=== PATIENT | male | born 1940 | race Two or more races ===

== ENCOUNTER → 2018-04-10 | Outpatient (CLI) | payer OTHER ==
[~2018-04-10] MED LIST: ACET-814 PO; CETI10TA79 PO; CHOL2000 PO; CYAN10005 PO; IBUP-1623 PO; LACT1CAP37 PO; LISI-170 PO; PRAV20TA2 PO; RANI150T23 PO; SENN-123 PO; VIT1TABL32 PO
[2018-04-10 10:45] LABS: BASOPHILS # (AUTO) 0.03 x10^3/uL (0-0.1); BASOPHILS % (AUTO) 1 % (0-1); EOSINOPHILS # (AUTO) 0.14 x10^3/uL (0-0.4); EOSINOPHILS % (AUTO) 3 % (1-7); LYMPHOCYTES # (AUTO) 1.62 x10^3/uL (1-3.4); LYMPHOCYTES % (AUTO) 35 % (22-44); MD NO; MEAN CORPUSCULAR HEMOGLOBIN 32.9 pg (27.5-34.5); MEAN CORPUSCULAR HGB CONC 34.6 g/dL (33.2-36.2); MEAN CORPUSCULAR VOLUME 95.1 fL (81-97); MEAN PLATELET VOLUME 7.7 fL (7.4-10.4); MONOCYTES # (AUTO) 0.38 x10^3/uL (0.2-0.8); MONOCYTES % (AUTO) 8 % (2-9); NEUTROPHILS # (AUTO) 2.48 x10^3/uL (1.8-6.8); NEUTROPHILS % (AUTO) 54 % (42-75); PLATELET COUNT 212 x10^3/uL (130-400); RED BLOOD COUNT 4.43 x10^6/uL (4.38-5.82)
[2018-04-10 10:48] LABS: CULTURE INDICATED? NO; MICROSCOPIC NOT IND
[2018-04-10 10:55] LABS: INTERNATIONAL NORMALIZED RATIO 1.03 (0.93-1.1); PROTHROMBIN TIME 10.7 Seconds (9.6-11.5)
[2018-04-10 10:57] LABS: ALBUMIN 3.8 g/dL (3.4-5.0); ANION GAP 8 mmol/L (5-15); CALCIUM 8.6 mg/dL (8.5-10.1); CHLORIDE 110 mmol/L (98-107)
[2018-04-10 10:59] LABS: ALANINE AMINOTRANSFERASE 41 U/L (12-78); ALKALINE PHOSPHATASE 62 U/L (45-117); BILIRUBIN,TOTAL 0.4 mg/dL (0.2-1.0); CREATININE 0.93 mg/dL (0.7-1.3); TOTAL PROTEIN 6.9 g/dL (6.4-8.2)
== END | disposition home or self-care (01) ==
LOC: STAR 09:15
PROVIDERS: ATTEND Neurological Surgery
DX: Z01.818 Encounter for other preprocedural examination (principal); M48.062 Spinal stenosis, lumbar region with neurogenic claudication; M51.36 Other intervertebral disc degeneration, lumbar region; Z87.891 Personal history of nicotine dependence
CPT/HCPCS: 36415; 71046; 80053; 81003; 85025; 85610; 85730; 93005

== ENCOUNTER 2018-04-19 09:20 | Inpatient (IN) | payer OTHER ==
[2018-04-10 11:59] VITALS: BP 132/82
[~2018-04-19] VITALS: Ht 182.9 cm; Wt 118.2 kg
[~2018-04-19 09:20] MED LIST changes: +BACITRACIN 50,000 UNIT ONE; +BUPIVACAINE/PF 0.5% ONE; +BUPIVACAINE/PF-EPI 0.5% 1:200K ONE; +THROMBIN 5,000 UNIT VIAL TP ONE; +VANCOMYCIN 1,000 MG ONE
[2018-04-19] MEDS ORDERED: LACTATED RINGERS 1,000 ML IV SCH (10:48)
[2018-04-19] MEDS ORDERED: GABAPENTIN 300 MG CAPSULE PO ONE (11:00)
[2018-04-19] MEDS ORDERED: LIDOCAINE-MPF 1%, 2ML INFIL ONE (11:00)
[2018-04-19] MEDS ORDERED: ACETAMINOPHEN 500 MG TABLET PO ONE (11:00)
[2018-04-19] MEDS ORDERED: SCOPOLAMINE PATCH, 1.5MG PATCH.TD72 TD ONE (11:00)
[2018-04-19] MEDS ORDERED: MIDAZOLAM 1 MG/ML, 2ML ONE (12:29)
[2018-04-19] MEDS ORDERED: FENTANYL PF 250 MCG/5ML ONE (12:29)
[2018-04-19] MEDS ORDERED: PROPOFOL 10 MG/ML, 20ML ONE (13:22)
[2018-04-19] MEDS ORDERED: ONDANSETRON 2MG/ML, 2ML ONE (13:22)
[2018-04-19] MEDS ORDERED: SUCCINYLCHOLINE 20 MG/ML, 10ML ONE (13:22)
[2018-04-19] MEDS ORDERED: ROCURONIUM 10 MG/ML,10ML ONE (13:22)
[2018-04-19] MEDS ORDERED: DEXAMETHASONE 4 MG/ML, 1ML ONE (13:22)
[2018-04-19] MEDS ORDERED: CEFAZOLIN 1,000 MG ONE (13:22)
[2018-04-19] MEDS ORDERED: PHARMACY MAY ADJ FOR RENAL FX MC PRN (15:30)
[2018-04-19] MEDS ORDERED: LABETALOL 5MG/ML, 20ML IV PRN (15:30)
[2018-04-19] MEDS ORDERED: OXYcodone 5 MG/5 ML ORAL.SOL UDC PO PRN (15:30)
[2018-04-19] MEDS ORDERED: ONDANSETRON 2MG/ML, 2ML IVPush PRN ×2 (15:30)
[2018-04-19] MEDS ORDERED: MORPHINE SULFATE 4 MG/ML, 1ML IVPush PRN (15:30)
[2018-04-19] MEDS ORDERED: ALBUTEROL SULFATE 2.5 MG/3 ML NPPB PRN (15:30)
[2018-04-19] MEDS ORDERED: METOCLOPRAMIDE 5 MG/ML, 2ML IV PRN (15:30)
[2018-04-19] MEDS ORDERED: BISACODYL 10 MG SUPP PR PRN (15:30)
[2018-04-19] MEDS ORDERED: MEPERIDINE/PF 25MG/0.5ML IVPush PRN (15:30)
[2018-04-19] MEDS ORDERED: DIPHENHYDRAMINE 50 MG/ML, 1ML IVPush PRN (15:30)
[2018-04-19] MEDS ORDERED: HYDROcodone/APAP 5/325 TABLET PO PRN (15:30)
[2018-04-19] MEDS ORDERED: PROMETHAZINE 25 MG/ML, 1ML IV PRN (15:30)
[2018-04-19] MEDS ORDERED: hydrALAzine 20 MG/ML, 1ML IV PRN (15:30)
[2018-04-19] MEDS ORDERED: METHOCARBAMOL 1,000 MG in DEXTROSE 5% 100 ML IV ONE (15:30)
[2018-04-19] MEDS: FENTANYL PF 100 MCG/2ML IV PRN ×2 (15:39→15:45)
[2018-04-19] MEDS ORDERED: FENTANYL PF 100 MCG/2ML ONE (15:39)
[2018-04-19] MEDS ORDERED: OXYcodone 5 MG/5 ML ORAL.SOL UDC ONE (15:40)
[2018-04-19] MEDS ORDERED: HYDROmorphone 2 MG/ML, 1ML ONE (15:51)
[2018-04-19] MEDS: HYDROmorphone 2 MG/ML, 1ML IV PRN ×4 (15:55→16:29)
[2018-04-19] MEDS ORDERED: LABETALOL 5MG/ML, 20ML ONE (16:13)
[2018-04-19] MEDS ORDERED: KETOROLAC 30 MG/1 ML IV PRN (17:00)
[2018-04-19 17:15] VITALS: BP 140/74
[2018-04-19] MEDS: D5%-0.9% NACL+KCL 20MEQ 1,000 ML IV SCH (18:01)
[2018-04-19] MEDS ORDERED: TEMPLATE NON-FORMULARY MED. (Ranitidine Hcl** (Zantac**) 150 MG) PO SCH (21:00)
[2018-04-19] MEDS: FAMOTIDINE 20 MG TABLET PO SCH (21:28)
[2018-04-19] MEDS: PRAVASTATIN 20 MG TABLET PO SCH (21:28)
[2018-04-19] MEDS: PROMETHAZINE 25 MG/ML, 1ML IM PRN (21:28)
[2018-04-19] MEDS: CEFAZOLIN PMX 1GM/50ML 50 ML IVPB SCH (21:29)
[2018-04-19] MEDS: SODIUM CHLORIDE FLUSH 10ML SYR IVF SCH (21:29)
[2018-04-19 23:55] VITALS: BP 105/61
[2018-04-20] MEDS: PROMETHAZINE 25 MG/ML, 1ML IM PRN (01:53)
[2018-04-20] MEDS: CYCLOBENZAPRINE 10 MG TABLET PO PRN ×2 (01:53→20:58)
[2018-04-20] MEDS: OXYcodone/APAP 5/325MG TABLET PO PRN ×5 (01:53→18:07)
[2018-04-20 03:59] VITALS: BP 101/58
[2018-04-20] MEDS: CEFAZOLIN PMX 1GM/50ML 50 ML IVPB SCH (05:44)
[2018-04-20 07:32] VITALS: BP 120/71
[2018-04-20] MEDS: FAMOTIDINE 20 MG TABLET PO SCH ×2 (07:55→20:58)
[2018-04-20] MEDS: SODIUM CHLORIDE FLUSH 10ML SYR IVF SCH ×2 (07:55→20:58)
[2018-04-20] MEDS: LISINOPRIL 20 MG TABLET PO SCH (07:55)
[2018-04-20] MEDS: SENNA/DOCUSATE TABLET PO SCH (07:55)
[2018-04-20] MEDS: LACTOBACILLUS CHEW TABLET PO SCH (07:55)
[2018-04-20] MEDS: CETIRIZINE 10 MG TABLET PO SCH (08:01)
[2018-04-20] MEDS ORDERED: TAMSULOSIN 0.4 MG CAP.ER.24H PO ONE (08:30)
[2018-04-20] MEDS: D5%-0.9% NACL+KCL 20MEQ 1,000 ML IV SCH (09:20)
[2018-04-20] MEDS: BETHANECHOL 25 MG TABLET PO SCH ×3 (09:20→20:58)
[2018-04-20 13:20] VITALS: BP 112/67
[2018-04-20 20:27] VITALS: BP 119/60
[2018-04-20] MEDS: PRAVASTATIN 20 MG TABLET PO SCH (20:58)
[2018-04-20] MEDS: MAGNESIUM HYDROXIDE 8%, 30ML UDC PO PRN (21:05)
[2018-04-21] MEDS: D5%-0.9% NACL+KCL 20MEQ 1,000 ML IV SCH ×2 (00:17→12:28)
[2018-04-21] MEDS: HYDROcodone/APAP 10/325 MG TABLET PO PRN ×3 (00:21→12:28)
[2018-04-21 02:19] VITALS: BP 115/57
[2018-04-21 04:43] LABS: BASOPHILS # (AUTO) 0.01 x10^3/uL (0-0.1); BASOPHILS % (AUTO) 0 % (0-1); EOSINOPHILS # (AUTO) 0.05 x10^3/uL (0-0.4); EOSINOPHILS % (AUTO) 1 % (1-7); LYMPHOCYTES # (AUTO) 1.24 x10^3/uL (1-3.4); LYMPHOCYTES % (AUTO) 17 % (22-44); MD NO; MEAN CORPUSCULAR HEMOGLOBIN 32.8 pg (27.5-34.5); MEAN CORPUSCULAR HGB CONC 34.2 g/dL (33.2-36.2); MEAN CORPUSCULAR VOLUME 95.8 fL (81-97); MEAN PLATELET VOLUME 7.5 fL (7.4-10.4); MONOCYTES # (AUTO) 0.61 x10^3/uL (0.2-0.8); MONOCYTES % (AUTO) 8 % (2-9); NEUTROPHILS # (AUTO) 5.48 x10^3/uL (1.8-6.8); NEUTROPHILS % (AUTO) 74 % (42-75); PLATELET COUNT 191 x10^3/uL (130-400); RED BLOOD COUNT 3.78 x10^6/uL (4.38-5.82)
[2018-04-21 04:51] LABS: ANION GAP 8 mmol/L (5-15); CALCIUM 7.9 mg/dL (8.5-10.1); CHLORIDE 107 mmol/L (98-107)
[2018-04-21 04:54] LABS: CREATININE 0.93 mg/dL (0.7-1.3)
[2018-04-21] MEDS: CYCLOBENZAPRINE 10 MG TABLET PO PRN ×2 (06:41→16:56)
[2018-04-21 07:40] VITALS: BP 115/72
[2018-04-21] MEDS: SODIUM CHLORIDE FLUSH 10ML SYR IVF SCH ×2 (09:00→21:00)
[2018-04-21 09:13] VITALS: BP 104/52
[2018-04-21] MEDS: TAMSULOSIN 0.4 MG CAP.ER.24H PO SCH (09:25)
[2018-04-21] MEDS: SENNA/DOCUSATE TABLET PO SCH (09:25)
[2018-04-21] MEDS: LISINOPRIL 20 MG TABLET PO SCH (09:25)
[2018-04-21] MEDS: LACTOBACILLUS CHEW TABLET PO SCH (09:25)
[2018-04-21] MEDS: CETIRIZINE 10 MG TABLET PO SCH (09:26)
[2018-04-21] MEDS: FAMOTIDINE 20 MG TABLET PO SCH ×2 (09:26→21:47)
[2018-04-21] MEDS: BETHANECHOL 25 MG TABLET PO SCH ×3 (09:26→21:48)
[2018-04-21] MEDS: MAGNESIUM HYDROXIDE 8%, 30ML UDC PO PRN (14:44)
[2018-04-21] MEDS: DIPHENHYDRAMINE 25 MG CAPSULE PO PRN ×2 (15:09→21:49)
[2018-04-21 15:23] VITALS: BP 130/73
[2018-04-21] MEDS ORDERED: MAGNESIUM CITRATE 300ML ORAL SOL PO PRN (18:00)
[2018-04-21] MEDS: PRAVASTATIN 20 MG TABLET PO SCH (21:47)
[2018-04-21 21:59] VITALS: BP 130/72
[2018-04-22 03:55] VITALS: BP 133/73
[2018-04-22] MEDS: D5%-0.9% NACL+KCL 20MEQ 1,000 ML IV SCH ×2 (06:15→17:20)
[2018-04-22 07:52] VITALS: BP 123/74
[2018-04-22] MEDS: SODIUM CHLORIDE FLUSH 10ML SYR IVF SCH ×2 (08:11→20:46)
[2018-04-22] MEDS: LACTOBACILLUS CHEW TABLET PO SCH (08:12)
[2018-04-22] MEDS: SENNA/DOCUSATE TABLET PO SCH (08:12)
[2018-04-22] MEDS: LISINOPRIL 20 MG TABLET PO SCH (08:12)
[2018-04-22] MEDS: TAMSULOSIN 0.4 MG CAP.ER.24H PO SCH (08:12)
[2018-04-22] MEDS: FAMOTIDINE 20 MG TABLET PO SCH ×2 (08:12→20:46)
[2018-04-22] MEDS: BETHANECHOL 25 MG TABLET PO SCH ×3 (08:13→20:46)
[2018-04-22] MEDS: CETIRIZINE 10 MG TABLET PO SCH (08:13)
[2018-04-22] MEDS: CYCLOBENZAPRINE 10 MG TABLET PO PRN (09:46)
[2018-04-22 12:15] VITALS: BP_SYST 131; BP_SYST 99; BP_DIAS 37; BP_DIAS 61; BP_DIAS 71
[2018-04-22 15:16] VITALS: BP 108/69
[2018-04-22 20:46] VITALS: BP 121/73
[2018-04-22] MEDS: PRAVASTATIN 20 MG TABLET PO SCH (20:46)
[2018-04-23 03:50] VITALS: BP 128/79
[2018-04-23] MEDS: D5%-0.9% NACL+KCL 20MEQ 1,000 ML IV SCH ×2 (06:40→20:00)
[2018-04-23 07:55] VITALS: BP 115/65
[2018-04-23] MEDS: CYCLOBENZAPRINE 10 MG TABLET PO PRN ×2 (08:06→16:05)
[2018-04-23] MEDS: LACTOBACILLUS CHEW TABLET PO SCH (08:06)
[2018-04-23] MEDS: SENNA/DOCUSATE TABLET PO SCH (08:06)
[2018-04-23] MEDS: FAMOTIDINE 20 MG TABLET PO SCH ×2 (08:07→20:50)
[2018-04-23] MEDS: SODIUM CHLORIDE FLUSH 10ML SYR IVF SCH ×2 (08:07→20:51)
[2018-04-23] MEDS: LISINOPRIL 20 MG TABLET PO SCH (08:07)
[2018-04-23] MEDS: TAMSULOSIN 0.4 MG CAP.ER.24H PO SCH (08:07)
[2018-04-23] MEDS: CETIRIZINE 10 MG TABLET PO SCH (08:08)
[2018-04-23] MEDS: BETHANECHOL 25 MG TABLET PO SCH ×3 (08:16→20:51)
[2018-04-23 12:14] VITALS: BP 114/63
[2018-04-23] MEDS: DIPHENHYDRAMINE 25 MG CAPSULE PO PRN (13:27)
[2018-04-23 19:27] VITALS: BP 112/69
[2018-04-23] MEDS: PRAVASTATIN 20 MG TABLET PO SCH (20:51)
[2018-04-24 01:35] VITALS: BP 114/67
[2018-04-24] MEDS: CYCLOBENZAPRINE 10 MG TABLET PO PRN ×2 (03:16→18:21)
[2018-04-24] MEDS: OXYcodone/APAP 5/325MG TABLET PO PRN ×3 (03:18→18:21)
[2018-04-24 07:50] VITALS: BP 112/71
[2018-04-24] MEDS: FAMOTIDINE 20 MG TABLET PO SCH ×2 (08:42→20:03)
[2018-04-24] MEDS: TAMSULOSIN 0.4 MG CAP.ER.24H PO SCH (08:42)
[2018-04-24] MEDS: CETIRIZINE 10 MG TABLET PO SCH (08:43)
[2018-04-24] MEDS: SENNA/DOCUSATE TABLET PO SCH (08:43)
[2018-04-24] MEDS: LISINOPRIL 20 MG TABLET PO SCH (08:43)
[2018-04-24] MEDS: LACTOBACILLUS CHEW TABLET PO SCH (08:43)
[2018-04-24] MEDS: BETHANECHOL 25 MG TABLET PO SCH (08:43)
[2018-04-24] MEDS: SODIUM CHLORIDE FLUSH 10ML SYR IVF SCH ×2 (08:44→21:00)
[2018-04-24] MEDS: D5%-0.9% NACL+KCL 20MEQ 1,000 ML IV SCH ×2 (08:45→22:40)
[2018-04-24] MEDS: MAGNESIUM HYDROXIDE 8%, 30ML UDC PO PRN (12:23)
[2018-04-24 13:14] VITALS: BP 116/65
[2018-04-24 19:52] VITALS: BP 113/73
[2018-04-24] MEDS: PRAVASTATIN 20 MG TABLET PO SCH (20:03)
[2018-04-25 02:07] VITALS: BP 137/75
[2018-04-25] MEDS: OXYcodone/APAP 5/325MG TABLET PO PRN ×2 (03:00→08:54)
[2018-04-25 07:07] VITALS: BP 115/73
[2018-04-25] MEDS: SENNA/DOCUSATE TABLET PO SCH (08:52)
[2018-04-25] MEDS: TAMSULOSIN 0.4 MG CAP.ER.24H PO SCH (08:52)
[2018-04-25] MEDS: SODIUM CHLORIDE FLUSH 10ML SYR IVF SCH (08:52)
[2018-04-25] MEDS: FAMOTIDINE 20 MG TABLET PO SCH (08:52)
[2018-04-25] MEDS: CETIRIZINE 10 MG TABLET PO SCH (08:53)
[2018-04-25] MEDS: LISINOPRIL 20 MG TABLET PO SCH (08:53)
[2018-04-25] MEDS: MAGNESIUM HYDROXIDE 8%, 30ML UDC PO PRN (08:53)
[2018-04-25] MEDS: LACTOBACILLUS CHEW TABLET PO SCH (08:53)
[2018-04-25] MEDS: D5%-0.9% NACL+KCL 20MEQ 1,000 ML IV SCH (08:54)
[2018-04-25 12:28] VITALS: BP 120/78
== END 2018-04-25 18:00 | DRG 516 ==
LOC: OBSVTOIN 10:27 → INTOOBSV 10:27 → ORIP 10:27 → 4NOR 17:05
PROVIDERS: ADMIT Neurological Surgery; ATTEND Neurological Surgery
PROC: 01NR0ZZ Release Sacral Nerve, Open Approach (ICD-10-PCS; 2018-04-19)
PROC: 01NB0ZZ Release Lumbar Nerve, Open Approach (ICD-10-PCS; principal; 2018-04-19 15:00)
DX: M48.062 Spinal stenosis, lumbar region with neurogenic claudication (principal); G95.29 Other cord compression; M51.16 Intervertebral disc disorders with radiculopathy, lumbar region; M51.17 Intervertebral disc disorders with radiculopathy, lumbosacral region; N40.1 Benign prostatic hyperplasia with lower urinary tract symptoms; R33.8 Other retention of urine; E78.5 Hyperlipidemia, unspecified; K21.9 Gastro-esophageal reflux disease without esophagitis; G47.33 Obstructive sleep apnea (adult) (pediatric); I49.5 Sick sinus syndrome; Z87.891 Personal history of nicotine dependence; Z88.4 Allergy status to anesthetic agent; Z79.899 Other long term (current) drug therapy; Z85.46 Personal history of malignant neoplasm of prostate
CPT/HCPCS: 36415; 72100; 80048; 85025; C1729; G0378; J0690; J1100; J1170; J2250; J2405; J2550; J2704; J3010; J3370; J3490; J0330; J2800; J3480; J7120; Q0163

== ENCOUNTER 2020-02-02 20:10 | Emergency (ER) | payer MEDICARE, OTHER ==
[~2020-02-02] VITALS: Ht 182.9 cm; Wt 113.0 kg
[~2020-02-02 20:10] MED LIST changes: -BACITRACIN 50,000 UNIT ONE; -BUPIVACAINE/PF 0.5% ONE; -BUPIVACAINE/PF-EPI 0.5% 1:200K ONE; +CYAN-27 PO; -CYAN10005 PO; +RANI-467 PO; -RANI150T23 PO; -THROMBIN 5,000 UNIT VIAL TP ONE; -VANCOMYCIN 1,000 MG ONE
[2020-02-02] MEDS ORDERED: METHYLNALTREXONE 12 MG/0.6 ML SYR SQ ONE ×2 (20:47→21:00)
--- NOTE | 2020-02-02 21:06 | NUR ---
Coulter catheter 16fr inserted at this time, pt tolerated well, urine sample obtained and walked to lab
[2020-02-02 21:49] LABS: MICROSCOPIC NOT IND
--- NOTE | 2020-02-02 21:54 | NUR ---
[facility] ENEMA INITIATED AT THIS TIME, PT RECIEVED APPROX 500 ML SOLUTION AND HELD IT FOR ABOUT 8 MINUTES AND STATED HE "COULD NO LONGER HOLD IT", PT ON BEDSIDE COMMODE AT THIS TIME, STATING "SOME IS COMING OUT BUT NOT THE BIG ONE"
--- NOTE | 2020-02-02 22:10 | NUR ---
Enema completed at this time, pt recieved total of 1 liter bag of enema, pt passing some hard bowel movements but states he feels "the big one is still stuck." Pt on bedside commode at this time, Dr sol informed of status
[2020-02-02] MEDS ORDERED: ASPIRIN 325 MG TABLET PO ONE (23:12)
[2020-02-02] MEDS ORDERED: ASPIRIN 325 MG TABLET ONE (23:14)
--- NOTE | 2020-02-02 23:21 | NUR ---
pt reassessed at this time, noted to have very large bowel movement in commode, pt states he feels "a lot better, still a little painful, but relieved"
[2020-02-02 23:46] VITALS: BP 128/74
== END 2020-02-02 23:51 | disposition home or self-care (01) ==
LOC: ED 20:40
DX: N40.1 Benign prostatic hyperplasia with lower urinary tract symptoms (principal); R33.8 Other retention of urine; K59.00 Constipation, unspecified; Z85.46 Personal history of malignant neoplasm of prostate
CPT/HCPCS: 74018; 81003; 96372; 99284

== ENCOUNTER → 2020-08-28 | Outpatient (CLI) | payer MEDICARE ==
[~2020-08-28] MED LIST changes: +ASPI325T17 PO; +BISA5TAB38 PO; +CHOL20008 PO; +DIPH25CA61 PO; +DOCU-180 PO; +HYDR-3248 PO; +IMMUNE PO; +LISI1TAB20 PO; +LOVA20TA2 PO; +METH-639 PO; +MULT-658 PO
[2020-08-28 10:00] LABS: BASOPHILS % (AUTO) 1 % (0-1); EOSINOPHILS % (AUTO) 3 % (1-7); LYMPHOCYTES % (AUTO) 32 % (22-44); MEAN CORPUSCULAR HEMOGLOBIN 31.4 pg (27.5-34.5); MEAN CORPUSCULAR HGB CONC 34.6 g/dL (33.2-36.2); MEAN PLATELET VOLUME 7.3 fL (7.4-10.4); MONOCYTES % (AUTO) 7 % (2-9); NEUTROPHILS % (AUTO) 57 % (42-75); PLATELET COUNT 240 x10^3/uL (130-400); RED BLOOD COUNT 4.67 x10^6/uL (4.38-5.82); RED CELL DISTRIBUTION WIDTH 13.2 % (9.4-14.8)
[2020-08-28 10:01] LABS: MD NO
[2020-08-28 10:02] LABS: MICROSCOPIC NOT IND
[2020-08-28 10:10] LABS: ALANINE AMINOTRANSFERASE 29 U/L (12-78); ALBUMIN 4.1 g/dL (3.4-5.0); ANION GAP 4 mmol/L (5-15); CALCIUM 9.3 mg/dL (8.5-10.1); CHLORIDE 107 mmol/L (98-107); CREATININE 0.91 mg/dL (0.7-1.3)
[2020-08-28 10:11] LABS: INTERNATIONAL NORMALIZED RATIO 1.02 (0.93-1.1); PROTHROMBIN TIME 10.9 Seconds (9.6-11.5)
[2020-08-28 10:12] LABS: ALKALINE PHOSPHATASE 59 U/L (45-117); BILIRUBIN,TOTAL 0.7 mg/dL (0.2-1.0)
== END | disposition home or self-care (01) ==
LOC: STAR 08:42
PROVIDERS: ATTEND Neurological Surgery
DX: Z01.810 Encounter for preprocedural cardiovascular examination (principal); M48.061 Spinal stenosis, lumbar region without neurogenic claudication; M43.16 Spondylolisthesis, lumbar region; M54.16 Radiculopathy, lumbar region; M54.5 Low back pain; R79.1 Abnormal coagulation profile; R82.90 Unspecified abnormal findings in urine; R94.31 Abnormal electrocardiogram [ECG] [EKG]; M51.36 Other intervertebral disc degeneration, lumbar region
CPT/HCPCS: 36415; 71046; 80053; 81003; 85025; 85610; 85730; 93005

== ENCOUNTER 2020-09-03 07:04 | Observation (INO) | payer MEDICARE ==
[~2020-09-03] VITALS: Ht 182.9 cm; Wt 110.1 kg
[~2020-09-03 07:04] MED LIST changes: +BACITRACIN 50,000 UNIT ONE; +BUPIVACAINE/PF 0.5% ONE; +EPINEPHRINE 1 MG/ML, 1ML ONE; +VANCOMYCIN 1,000 MG ONE
[2020-09-03] MEDS ORDERED: CHLORHEXIDINE 15 ML UDC ONE (08:05)
[2020-09-03 08:16] VITALS: BP 122/73
[2020-09-03] MEDS ORDERED: FENTANYL PF 250 MCG/5ML ONE (08:28)
[2020-09-03] MEDS ORDERED: CHLORHEXIDINE 15 ML UDC MM ONE (08:30)
[2020-09-03] MEDS ORDERED: LACTATED RINGERS 1,000 ML IV SCH (08:30)
[2020-09-03] MEDS ORDERED: ACETAMINOPHEN 325 MG TABLET PO PRN (09:00)
[2020-09-03] MEDS ORDERED: OXYcodone 5 MG/5 ML ORAL.SOL UDC PO PRN (09:00)
[2020-09-03] MEDS ORDERED: hydrALAzine 20 MG/ML, 1ML IV PRN (09:00)
[2020-09-03] MEDS ORDERED: LABETALOL 5MG/ML, 20ML IV PRN (09:00)
[2020-09-03] MEDS ORDERED: MEPERIDINE/PF 25MG/0.5ML IVPush PRN (09:00)
[2020-09-03] MEDS ORDERED: PROMETHAZINE 25 MG/ML, 1ML IVPush PRN (09:00)
[2020-09-03] MEDS ORDERED: HALOPERIDOL 5 MG/ML IV PRN (09:00)
[2020-09-03] MEDS ORDERED: morphine SULFATE 10 MG/ML, 1ML IVPush PRN (09:00)
[2020-09-03] MEDS ORDERED: PHENYLEPHRINE 10 MG/ML ONE (09:02)
[2020-09-03] MEDS ORDERED: GLYCOPYRROLATE 0.2MG/1ML, 5ML ONE (09:50)
[2020-09-03] MEDS ORDERED: ONDANSETRON 2MG/ML, 2ML ONE (09:50)
[2020-09-03] MEDS ORDERED: CEFAZOLIN 1,000 MG ONE (09:50)
[2020-09-03] MEDS ORDERED: NEOSTIGMINE 1 MG/ML, 10ML ONE (09:50)
[2020-09-03] MEDS ORDERED: PROPOFOL 10 MG/ML, 20ML ONE (09:50)
[2020-09-03] MEDS ORDERED: ROCURONIUM 10MG/ML,5ML ONE (09:50)
[2020-09-03] MEDS ORDERED: DEXAMETHASONE 4 MG/ML, 1ML ONE (09:50)
[2020-09-03] MEDS ORDERED: FENTANYL PF 100 MCG/2ML ONE ×2 (11:15→11:51)
[2020-09-03] MEDS ORDERED: HYDROmorphone 1 MG/ML, 1ML INJ ONE ×2 (11:51→12:37)
[2020-09-03] MEDS ORDERED: OXYcodone 5 MG/5 ML ORAL.SOL UDC ONE (11:51)
[2020-09-03] MEDS: FENTANYL PF 100 MCG/2ML IV PRN ×2 (11:59→12:05)
[2020-09-03] MEDS ORDERED: DIPHENHYDRAMINE 50 MG CAPSULE PO PRN (12:00)
[2020-09-03] MEDS ORDERED: PROMETHAZINE 25 MG/ML, 1ML IM PRN (12:00)
[2020-09-03] MEDS ORDERED: METHOCARBAMOL 1,000 MG in DEXTROSE 5% 100 ML IV ONE (12:00)
[2020-09-03] MEDS ORDERED: ONDANSETRON 2MG/ML, 2ML IVPush PRN (12:00)
[2020-09-03] MEDS ORDERED: BISACODYL 10 MG SUPP PR PRN (12:00)
[2020-09-03] MEDS ORDERED: DIPHENHYDRAMINE 50 MG/ML, 1ML IVPush PRN (12:00)
[2020-09-03] MEDS ORDERED: HYDROcodone/APAP 10/325 MG TABLET PO PRN (12:00)
[2020-09-03] MEDS ORDERED: DIPHENHYDRAMINE 50 MG/ML, 1ML IM PRN (12:00)
[2020-09-03] MEDS ORDERED: PHARMACY MAY ADJ FOR RENAL FX MC PRN (12:00)
[2020-09-03] MEDS ORDERED: SENNA/DOCUSATE TABLET PO PRN (12:00)
[2020-09-03] MEDS: HYDROmorphone 1 MG/ML, 1ML INJ IVPush PRN ×3 (12:10→12:39)
[2020-09-03 13:30] VITALS: BP 129/77
[2020-09-03] MEDS ORDERED: BISACODYL 5 MG EC TABLET PO PRN (13:31)
[2020-09-03] MEDS: LABETALOL 5MG/ML 40ML VIAL IVPush SCH ×2 (13:41→22:00)
[2020-09-03] MEDS: HYDROcodone/APAP 10/325 MG TABLET PO SCH ×3 (13:45→21:24)
[2020-09-03] MEDS: DOCUSATE 100 MG CAPSULE PO SCH ×3 (14:41→21:24)
[2020-09-03] MEDS: NS + 20MEQ KCL 1,000 ML IV SCH (14:41)
[2020-09-03] MEDS: HYDROmorphone 2MG TABLET PO PRN (14:45)
[2020-09-03] MEDS: CEFAZOLIN PMX 1GM/50ML 50 ML IVPB SCH (17:14)
[2020-09-03 19:05] VITALS: BP 121/69
[2020-09-03] MEDS: SODIUM CHLORIDE FLUSH 10ML SYR IVF SCH (21:00)
[2020-09-03] MEDS: LISINOPRIL 20 MG TABLET PO SCH (21:05)
[2020-09-03] MEDS: LOVASTATIN 20 MG TABLET PO SCH (21:05)
[2020-09-03 23:41] VITALS: BP 97/59
[2020-09-04] MEDS: CEFAZOLIN PMX 1GM/50ML 50 ML IVPB SCH (01:30)
[2020-09-04] MEDS: DOCUSATE 100 MG CAPSULE PO SCH ×6 (01:31→20:23)
[2020-09-04] MEDS: HYDROcodone/APAP 10/325 MG TABLET PO SCH ×3 (01:32→09:30)
[2020-09-04] MEDS: HYDROmorphone 2MG TABLET PO PRN ×2 (02:50→11:54)
[2020-09-04 03:34] VITALS: BP_SYST 116; BP_SYST 97; BP_DIAS 59; BP_DIAS 65
[2020-09-04 04:32] LABS: BASOPHILS % (AUTO) 0 % (0-1); EOSINOPHILS % (AUTO) 1 % (1-7); LYMPHOCYTES % (AUTO) 16 % (22-44); MEAN CORPUSCULAR HEMOGLOBIN 31.6 pg (27.5-34.5); MEAN CORPUSCULAR HGB CONC 35.1 g/dL (33.2-36.2); MEAN PLATELET VOLUME 7.1 fL (7.4-10.4); MONOCYTES % (AUTO) 9 % (2-9); NEUTROPHILS % (AUTO) 73 % (42-75); PLATELET COUNT 205 x10^3/uL (130-400); RED BLOOD COUNT 4.03 x10^6/uL (4.38-5.82); RED CELL DISTRIBUTION WIDTH 12.7 % (9.4-14.8)
[2020-09-04 04:36] LABS: MD NO
[2020-09-04 04:47] LABS: ALBUMIN 3.1 g/dL (3.4-5.0); ANION GAP 5 mmol/L (5-15); CHLORIDE 108 mmol/L (98-107); CREATININE 0.77 mg/dL (0.7-1.3)
[2020-09-04] MEDS: ENOXAPARIN 40 MG/0.4 ML SQ SCH (05:28)
[2020-09-04] MEDS: NS + 20MEQ KCL 1,000 ML IV SCH ×2 (05:29→18:20)
[2020-09-04] MEDS: LABETALOL 5MG/ML 40ML VIAL IVPush SCH (05:29)
[2020-09-04 06:30] VITALS: BP 97/61
[2020-09-04] MEDS: LISINOPRIL 20 MG TABLET PO SCH ×2 (09:00→20:24)
[2020-09-04] MEDS: SODIUM CHLORIDE FLUSH 10ML SYR IVF SCH ×2 (09:00→20:23)
[2020-09-04] MEDS: HYDROCHLOROTHIAZIDE 25 MG TABLET PO SCH (09:00)
[2020-09-04] MEDS: MAGNESIUM HYDROXIDE 8%, 30ML UDC PO PRN (09:10)
[2020-09-04] MEDS: OXYcodone/APAP 10/325MG TABLET PO PRN ×2 (09:26→14:26)
[2020-09-04] MEDS ORDERED: LABETALOL 5MG/ML 40ML VIAL IVPush PRN (12:30)
[2020-09-04 13:05] VITALS: BP 128/89
[2020-09-04] MEDS ORDERED: KETOROLAC 30 MG/1 ML IVPush SCH (17:00)
[2020-09-04] MEDS ORDERED: FENTANYL PF 100 MCG/2ML IVPush PRN (17:00)
[2020-09-04] MEDS: HYDROcodone/APAP 10/325 MG TABLET PO PRN ×2 (17:34→23:36)
[2020-09-04] MEDS: DEXAMETHASONE 4 MG/ML, 1ML IVPush SCH ×2 (17:39→22:38)
[2020-09-04] MEDS: KETOROLAC 30 MG/1 ML IVPush SCH (17:39)
[2020-09-04 18:58] VITALS: BP 115/70
[2020-09-04] MEDS: LOVASTATIN 20 MG TABLET PO SCH (20:23)
[2020-09-05 04:49] VITALS: BP 106/68
[2020-09-05] MEDS: KETOROLAC 30 MG/1 ML IVPush SCH (04:50)
[2020-09-05] MEDS: DOCUSATE 100 MG CAPSULE PO SCH ×3 (04:50→08:50)
[2020-09-05] MEDS: DEXAMETHASONE 4 MG/ML, 1ML IVPush SCH ×2 (04:50→12:10)
[2020-09-05 05:14] LABS: BASOPHILS % (AUTO) 0 % (0-1); EOSINOPHILS % (AUTO) 0 % (1-7); LYMPHOCYTES % (AUTO) 9 % (22-44); MEAN CORPUSCULAR HEMOGLOBIN 31.4 pg (27.5-34.5); MEAN CORPUSCULAR HGB CONC 34.7 g/dL (33.2-36.2); MEAN PLATELET VOLUME 7.2 fL (7.4-10.4); MONOCYTES % (AUTO) 7 % (2-9); NEUTROPHILS % (AUTO) 83 % (42-75); PLATELET COUNT 202 x10^3/uL (130-400); RED BLOOD COUNT 4.12 x10^6/uL (4.38-5.82); RED CELL DISTRIBUTION WIDTH 13.3 % (9.4-14.8)
[2020-09-05 05:17] LABS: MD NO
[2020-09-05] MEDS: ENOXAPARIN 40 MG/0.4 ML SQ SCH (06:00)
[2020-09-05 07:08] VITALS: BP_SYST 101; BP_SYST 119; BP_DIAS 68
[2020-09-05] MEDS: NS + 20MEQ KCL 1,000 ML IV SCH (07:40)
[2020-09-05] MEDS ORDERED: METH-640 PO (08:43)
[2020-09-05] MEDS ORDERED: HYDR-3248 PO (08:43)
[2020-09-05] MEDS: MAGNESIUM HYDROXIDE 8%, 30ML UDC PO PRN (08:50)
[2020-09-05] MEDS: HYDROcodone/APAP 10/325 MG TABLET PO PRN ×2 (08:51→15:04)
[2020-09-05] MEDS: SODIUM CHLORIDE FLUSH 10ML SYR IVF SCH (08:52)
[2020-09-05] MEDS: LISINOPRIL 20 MG TABLET PO SCH (09:00)
[2020-09-05] MEDS: HYDROCHLOROTHIAZIDE 25 MG TABLET PO SCH (09:00)
[2020-09-05 13:04] VITALS: BP 119/59
[2020-09-05] MEDS ORDERED: METHOCARBAMOL 750 MG TABLET PO SCH (20:00)
== END 2020-09-05 15:25 | disposition home or self-care (01) ==
LOC: OUT 07:04 → EDSTATUS 10:00 → 4NE 13:25 → OUT 22:28 → 4NE 22:29 → INTOOBSV 22:29 → DCLOUNGE 09-05 15:15
PROVIDERS: ADMIT Neurological Surgery; ATTEND Neurological Surgery
DX: M48.061 Spinal stenosis, lumbar region without neurogenic claudication (principal); Z20.822 Contact with and (suspected) exposure to COVID-19; M43.17 Spondylolisthesis, lumbosacral region; M54.16 Radiculopathy, lumbar region; M43.16 Spondylolisthesis, lumbar region; K59.00 Constipation, unspecified; I10 Essential (primary) hypertension; E78.5 Hyperlipidemia, unspecified; Z87.891 Personal history of nicotine dependence; Z79.899 Other long term (current) drug therapy
CPT/HCPCS: 20930; 22612; 22840; 22853; 36415; 72100; 80048; 82040; 85025; 87635; 96361; 96365; 96366; 96372; 96375; 96376; 97162; 97165; C1713; C1762; C1769; C1889; G0378; J0171; J0690; J1100; J1170; J1650; J1885; J2370; J2405; J2550; J2704; J2710; J2800; J3010; J3370; J3480; J7120; S0020

== ENCOUNTER → 2020-11-28 | Outpatient (CLI) | payer MEDICARE ==
[~2020-11-28] MED LIST changes: -BACITRACIN 50,000 UNIT ONE; -BUPIVACAINE/PF 0.5% ONE; -DOCU-180 PO; +DOCU-183 PO; -EPINEPHRINE 1 MG/ML, 1ML ONE; +METH-640 PO; -VANCOMYCIN 1,000 MG ONE
== END | disposition home or self-care (01) ==
LOC: CFH 15:36
PROVIDERS: ATTEND Internal Medicine
DX: M71.22 Synovial cyst of popliteal space [Baker], left knee (principal); I82.402 Acute embolism and thrombosis of unspecified deep veins of left lower extremity